=== PATIENT | male | born 1955 | race Caucasian/White ===

== ENCOUNTER 2016-08-12 16:42 | Inpatient (IN) | payer MEDICARE ==
[~2016-08-12] VITALS: Ht 172.7 cm; Wt 72.5 kg
[2016-08-12] VITALS (8 sets, daily range): BP systolic 139–222; BP diastolic 75–102; PULSE 62–87; RESP 16; TEMP 97.7; O2SAT 93–100
[2016-08-12] MEDS ORDERED: ESCI10TA PO (16:57)
[2016-08-12] MEDS ORDERED: ALPR.5 PO (16:57)
[2016-08-12] MEDS ORDERED: ATOR40TA16 PO (16:57)
[2016-08-12] MEDS ORDERED: LEVO75TA3 PO (16:57)
[2016-08-12] MEDS ORDERED: ASPI325T PO (16:57)
[2016-08-12] MEDS ORDERED: MORPHINE SULFATE 4 MG/ML INJ IV PUSH ONE (17:00)
[2016-08-12] MEDS ORDERED: SODIUM CHLORID 0.9% 500 ML INJ 500 ML IV ONE (17:00)
[2016-08-12] MEDS ORDERED: SODIUM CHLORIDE 0.9% FLUSH 10 ML FLUSH IVF PRN (17:00)
--- NOTE | 2016-08-12 17:00 | PD ---
HPI Chief Complaint: Chest Pain Time Seen by Provider: 16:48 Travel History International Travel<30 days: No Contact w/Intl Traveler<30days: No Traveled to known affect area: No History of Present Illness HPI the patient 60 years old. He arrives with left chest pain with a squeezing quality asked him severity 6/10 in severity for return in the ER. The onset occurred at rest 45 minutes ago. The patient walked on the beach today as he has been doing lately. He reports not taking aspirin for the last 6 days or so. He has a history of coronary artery disease evidently with 5 stents. Prior ER arrival he took 2 baby aspirins. Initially he felt some pain in the left scapula and left shoulder however has none now. He quit smoking 3-4 years ago. No diaphoresis. PFSH Past Medical History Cardiovascular Problems: Yes Cerebrovascular Accident: Yes Respiratory: Yes Social History Tobacco Use: Yes (quit three years ago) Allergies-Medications (Allergen,Severity, Reaction): Coded Allergies: No Known Allergies (Unverified , 08/12/16) Reported Meds & Prescriptions Reported Meds & Active Scripts Active Reported Ambien (Zolpidem Tartrate) 5 Mg Tab 5 Mg PO HS PRN Symbicort Inh (Budesonide/Formoterol Fumarate) 160-4.5 Mcg/Act Aero 1 Puff INH Q12HR Spiriva Handihaler (Tiotropium Inh) 18 Mcg Cap 18 Mcg INH DAILY 1 capsule = 18 mcg Proair Hfa 8.5 GM Inh (Albuterol Sulfate) 90 Mcg/Act Aer 2 Puff INH Q4-6H PRN 108 mcg/actuation Aspirin 325 Mg Tab 650 Mg PO ONCE Xanax (Alprazolam) 0.5 Mg Tab 0.5 Mg PO Q8H PRN Escitalopram (Escitalopram Oxalate) 10 Mg Tab 10 Mg PO DAILY Atorvastatin (Atorvastatin Calcium) 40 Mg Tab 40 Mg PO HS Levothyroxine (Levothyroxine Sodium) 75 Mcg Tab 75 Mcg PO DAILY Review of Systems Except as stated in HPI: all other systems reviewed are Neg Physical Exam Narrative GENERAL: 60-year-old male well-nourished well-developed pleasant speaking full sentences SKIN: Focused skin assessment warm/dry. HEAD: Atraumatic. Normocephalic. EYES: Pupils equal and round. No scleral icterus. No injection or drainage. ENT: No nasal bleeding or discharge. Mucous membranes pink and moist. NECK: Trachea midline. No JVD. CARDIOVASCULAR: Regular rate and rhythm. No murmur appreciated. RESPIRATORY: No accessory muscle use. Clear to auscultation. Breath sounds equal bilaterally. No tenderness along the anterior chest wall. GASTROINTESTINAL: Abdomen soft, non-tender, nondistended. Hepatic and splenic margins not palpable. MUSCULOSKELETAL: No obvious deformities. No clubbing. No cyanosis. No edema. NEUROLOGICAL: Awake and alert. No obvious cranial nerve deficits. Motor grossly within normal limits. Normal speech. PSYCHIATRIC: Appropriate mood and affect; insight and judgment normal. Data Data Last Documented VS Vital Signs Date Time Temp Pulse Resp B/P Pulse Ox O2 Delivery O2 Flow Rate FiO2 08/12/16 19:32 75 16 154/76 100 Nasal Cannula 2 08/12/16 16:50 97.7 Orders Electrocardiogram (08/12/16 16:55) Basic Metabolic Panel (Bmp) (08/12/16 16:55) Ckmb (Isoenzyme) Profile (08/12/16 16:55) Complete Blood Count With Diff (08/12/16 16:55) Magnesium (Mg) (08/12/16 16:55) Prothrombin Time / Inr (Pt) (08/12/16 16:55) Act Partial Throm Time (Ptt) (08/12/16 16:55) Troponin I (08/12/16 16:55) Chest, Single Ap (08/12/16 16:55) Ecg Monitoring (08/12/16 16:55) Bilateral Bp Monitoring (08/12/16 16:55) Iv Access Insert/Monitor (08/12/16 16:55) Oximetry (08/12/16 16:55) Oxygen Administration (08/12/16 16:55) Morphine Inj (Morphine Inj) (08/12/16 17:00) Sodium Chloride 0.9% Flush (Ns Flush) (08/12/16 17:00) Nitroglycerin Sl (Nitrostat Sl) (08/12/16 17:00) Sodium Chlorid 0.9% 500 Ml Inj (Ns 500 M (08/12/16 17:00) CKMB (08/12/16 17:00) CKMB% (08/12/16 17:00) Troponin I (08/12/16 19:45) Enoxaparin Inj (Lovenox Inj) (08/12/16 20:30) Admit Order (Ed Use Only) (08/12/16 20:52) Labs Laboratory Tests Test 08/12/16 08/12/16 17:00 19:40 White Blood Count 6.2 TH/MM3 Red Blood Count 4.99 MIL/MM3 Hemoglobin 15.6 GM/DL Hematocrit 46.0 % Mean Corpuscular Volume 92.4 FL Mean Corpuscular Hemoglobin 31.2 PG Mean Corpuscular Hemoglobin 33.8 % Concent Red Cell Distribution Width 13.5 % Platelet Count 259 TH/MM3 Mean Platelet Volume 6.8 FL Neutrophils (%) (Auto) 50.5 % Lymphocytes (%) (Auto) 30.6 % Monocytes (%) (Auto) 12.9 % Eosinophils (%) (Auto) 5.2 % Basophils (%) (Auto) 0.8 % Neutrophils # (Auto) 3.2 TH/MM3 Lymphocytes # (Auto) 1.9 TH/MM3 Monocytes # (Auto) 0.8 TH/MM3 Eosinophils # (Auto) 0.3 TH/MM3 Basophils # (Auto) 0.0 TH/MM3 CBC Comment DIFF FINAL Differential Comment Prothrombin Time 9.5 SEC Prothromb Time International 0.9 RATIO Ratio Activated Partial 26.5 SEC Thromboplast Time Sodium Level 146 MEQ/L Potassium Level 3.8 MEQ/L Chloride Level 110 MEQ/L Carbon Dioxide Level 29.5 MEQ/L Anion Gap 7 MEQ/L Blood Urea Nitrogen 15 MG/DL Creatinine 0.95 MG/DL Estimat Glomerular Filtration 81 ML/MIN Rate Random Glucose 107 MG/DL Calcium Level 8.7 MG/DL Magnesium Level 2.5 MG/DL Total Creatine Kinase 210 U/L Creatine Kinase MB 1.7 NG/ML Troponin I LESS THAN 0.02 0.08 NG/ML NG/ML MDM Medical Decision Making Medical Screen Exam Complete: Yes Emergency Medical Condition: Yes Differential Diagnosis NSTEMI, unstable angina, coronary vasospasm, PE, PTX, aortic dissection, pericarditis, myocarditis, endocarditis, PNA, esophageal disease, aneurysm, musculoskeletal etiologies, anxiety, cocaine/sympathomimetic abuse Narrative Course CBC & BMP Diagram 08/12/16 17:00 EKG: Sinus, rate 80, no STEMI, nonspecific T wave changes First troponin is < 0.02 and a second troponin is 0.08 Last 24 hours Impressions Chest X-Ray 08/12/16 1655 Signed Impressions: Service Date/Time: Friday, August 12, 2016 17:22 - CONCLUSION: 1. Minimal basilar atelectasis or scarring. No effusion. No pneumothorax. Benito Helm MD 2029: pt without pain, results d/w patient, VSS 2044: pt d/w Dr Ma for [facility] 2054: pt d/w Dr Loredo for cardiology who advises transfer to [facility] Critical Care Narrative Aggregate critical care time was 35 minutes. Time to perform other separately billable procedures was not included in the critical care time. My time did not include minutes spent treating any other patients simultaneously or on activities that did not directly contribute to the patient's treatment. The services I provided to this patient were to treat and/or prevent clinically significant deterioration that could result in: Occlusive coronary disease, myocardial infarction: I provided critical care services requiring my management, as noted below: Chart data review, documentation time, medication orders and management, vital sign assessments/reviewing monitor data, ordering and reviewing lab tests, ordering and interpreting/reviewing x-rays and diagnostic studies, care of the patient and discussion of the patient with the admitting physicians. Diagnosis Primary Impression: Chest pain Qualified Code: R07.9 - Chest pain, unspecified type Additional Impression: Elevated troponin Admitting Information Admitting Physician Requests: Jerad Daniels MD August 12, 2016 17:00
[2016-08-12] MEDS: NITROGLYCERIN 0.4 MG SL 25 TABS/BTL SL SCH ×3 (17:06→17:16)
[2016-08-12 17:11] LABS: AUTOMATED NEUTROPHIL # 3.2 TH/MM3 (1.8-7.7); BASOPHIL % 0.8 % (0.0-2.0); EOSINOPHIL # 0.3 TH/MM3 (0-0.4); EOSINOPHIL % 5.2 % (0.0-4.0); HEMO FLAGS DIFF FINAL; LYMPH % 30.6 % (9.0-44.0); LYMPHOCYTE # 1.9 TH/MM3 (1.0-4.8); MEAN CELL VOLUME 92.4 FL (80.0-100.0); MEAN CORPUSCULAR HEMOGLOBIN 31.2 PG (27.0-34.0); MEAN CORPUSCULAR HGB CONC 33.8 % (32.0-36.0); MONO % 12.9 % (0.0-8.0); NEUT % 50.5 % (16.0-70.0); PLATELET COUNT 259 TH/MM3 (150-450); RED BLOOD COUNT 4.99 MIL/MM3 (4.50-5.90); RED CELL DISTRIBUTION WIDTH 13.5 % (11.6-17.2); WHITE BLOOD COUNT 6.2 TH/MM3 (4.0-11.0)
[2016-08-12 17:19] LABS: CHLORIDE 110 MEQ/L (98-107); POTASSIUM 3.8 MEQ/L (3.5-5.1); SODIUM (NA) 146 MEQ/L (136-145)
[2016-08-12 17:22] LABS: ANION GAP 7 MEQ/L (5-15); BICARBONATE 29.5 MEQ/L (21.0-32.0); BLOOD UREA NITROGEN 15 MG/DL (7-18); MAGNESIUM 2.5 MG/DL (1.5-2.5)
[2016-08-12 17:25] LABS: GLOMERULAR FILTRATION RATE 81 ML/MIN (>89)
[2016-08-12 17:28] LABS: CREATINE KINASE 210 U/L (39-308)
[2016-08-12 17:40] LABS: CKMB 1.7 NG/ML (0.5-3.6)
[2016-08-12] MEDS ORDERED: SYMB160A INH (18:08)
[2016-08-12] MEDS ORDERED: SPIRCAP INH (18:08)
[2016-08-12] MEDS ORDERED: ALBUAER3 INH (18:08)
[2016-08-12 18:18] LABS: APTT (PATIENT) 26.5 SEC (24.3-30.1); INTERNATIONAL NORMALIZED RATIO 0.9 RATIO; PROTHROMBIN TIME - PATIENT 9.5 SEC (9.8-11.6)
--- NOTE | 2016-08-12 18:27 | RADHPO ---
EXAM DATE/TIME: 08/12/2016 17:22 [place] COMPARISON: No previous studies available for comparison. INDICATIONS : Chest pain for 1 hour MEDICAL HISTORY : Chronic obstructive pulmonary disease. SURGICAL HISTORY : Cardiac stents ENCOUNTER: Initial ACUITY: 1 day PAIN SCORE: 9/10 LOCATION: Bilateral chest FINDINGS: A single view of the chest demonstrates the lungs to be symmetrically aerated without evidence of mas s, infiltrate or effusion. There is minimal basilar atelectasis or scarring. The cardiomediastinal co ntours are unremarkable. Osseous structures are intact. CONCLUSION: 1. Minimal basilar atelectasis or scarring. No effusion. No pneumothorax. Benito Helm MD on August 12, 2016 at 18:24 Board Certified Radiologist. This report was verified electronically.
[2016-08-12] MEDS ORDERED: ENOXAPARIN SODIUM 80 MG/0.8 ML SYRINGE SQ ONE (20:30)
[2016-08-12] MEDS ORDERED: AMBI5TAB PO (20:39)
[2016-08-12] MEDS ORDERED: ALPRAZolam 0.5 MG TAB PO PRN (21:00)
[2016-08-12] MEDS ORDERED: ATORVASTATIN 40 MG TAB PO SCH (21:00)
[2016-08-12] MEDS ORDERED: ONDANSETRON HCL 4 MG/2 ML VIAL IVP PRN (21:00)
[2016-08-12] MEDS ORDERED: ZOLPIDEM TARTRATE 5 MG TAB PO PRN (21:00)
[2016-08-12] MEDS ORDERED: MORPHINE SULFATE 4 MG/ML INJ IV PRN (21:00)
[2016-08-12] MEDS ORDERED: ACETAMINOPHEN/HYDROcodone 325 MG/5 MG TAB PO PRN (21:00)
[2016-08-12] MEDS ORDERED: ACETAMINOPHEN 325 MG TAB PO PRN (21:00)
[2016-08-12] MEDS ORDERED: BISACODYL 10 MG SUPP RECTAL PRN (21:00)
[2016-08-12] MEDS ORDERED: SODIUM CHLORIDE 0.9% FLUSH 10 ML FLUSH IV FLUSH PRN (21:00)
[2016-08-12] MEDS ORDERED: ALBUTEROL SULFATE 90 MCG/ACT HFA 8 GM INHALER INH PRN (21:00)
--- NOTE | 2016-08-12 21:46 | EKG ---
Date Performed: 08/12/2016 Time Performed: 16:44:10 PTAGE: 60 years EKG: Sinus rhythm . Septal T wave changes are nonspecific Borderline ECG NO PREVIOUS TRACING DOCTOR: Magalie Loredo Interpretating Date/Time 08/12/2016 21:44:39
[2016-08-12] MEDS: BUDESONIDE-FORMOTEROL 160/4.5 MCG INHALER INH SCH (22:25)
[2016-08-12] MEDS: SODIUM CHLOR 0.9% 1000 ML INJ 1,000 ML IV SCH (22:25)
[2016-08-12] MEDS: SODIUM CHLORIDE 0.9% FLUSH 10 ML FLUSH IV FLUSH SCH (22:26)
[2016-08-13] VITALS (15 sets, daily range): BP systolic 131–152; BP diastolic 73–89; PULSE 70–86; RESP 18–20; TEMP 97–98.1; O2SAT 96–98
[2016-08-13] MEDS ORDERED: NITROGLYCERIN 0.4 MG SL 25 TABS/BTL SL PRN (03:15)
[2016-08-13] MEDS ORDERED: LORazepam 2 MG TAB PO PRN (03:30)
[2016-08-13] MEDS ORDERED: LORazepam 2 MG/ML VIAL IV PUSH PRN ×4 (03:30)
[2016-08-13] MEDS ORDERED: LORazepam 1 MG TAB PO PRN (03:30)
[2016-08-13] MEDS ORDERED: HALOPERIDOL LACTATE 5 MG/ML AMP IM PRN (03:30)
[2016-08-13] MEDS ORDERED: FLUMAZENIL 0.5 MG/5 ML VIAL IV PUSH PRN (03:30)
--- NOTE | 2016-08-13 03:32 | HHI.HP ---
[facility] Non-Staff Admission Diagnosis Chest Pain; Elevated Tn Diagnoses: (1) NSTEMI (non-ST elevated myocardial infarction) (2) Chest pain Chief Complaint: Chest pain Travel History International Travel<30 Days: No Contact w/Intl Traveler <30 Da: No Traveled to Known Affected Are: No History of Present Illness Mr. Davis is a 60 year-old male with a history of coronary artery disease status post cardiac stent placement 5 (4 in 2011 and 1 02/2015), hypertension, hyperlipidemia, hypothyroidism, and COPD who presented to the [place] emergency department on 08/13/2016 complaining of chest pain. Chest x-ray showed minimal basilar atelectasis or scarring with no effusion or pneumothorax. Troponin I elevated 0.02, 0.08, and 0.58. The patient is seen in his hospital room after he has been transferred from [place]. He tells me that he and his went for a walk on the beach yesterday. They're vacationing from [place]. He noticed that it was difficult to breathe while walking but attributed it to how windy it was outside. Then he walked 2 flights of stairs from the beach to get to his hotel room and noticed that he had slight chest pain when he got to the top. It eased up with rest and he went on to have lunch and went back to the hotel to take a nap. Left sided sharp/achy chest pain awakened him from his slumber and was accompanied by nausea. He said the chest pain he had waxed and waned from a 9/ 10 to a 2/10. The pain did not radiate and was not accompanied by shortness of breath, palpitations, or vomiting. He did get intermittently diaphoretic with it. The pain lasted for an hour and a half to 2 hours before he finally decided to come to the emergency room. He did not have his sublingual nitroglycerin from home. He took 2 full strength aspirins and initially that did help the pain but not for long. The pain became progressively worse and was finally relieved in the emergency room after receiving 3 doses of nitroglycerin and morphine. At the time of my visit, his pain level is 0 out of 10. He had been taking BC powders once a day for a prolonged time but discontinued this medication one week ago. He was concerned that BC might be bad for his stomach. He reports no recent fever, chills, upper respiratory infection, syncope, nausea, vomiting, or diarrhea. He did have an irregular bowel movement this morning that he described as being milk chocolate brown in color and loose. There was no red or tarry stool. He reports chronic shortness of breath from COPD but is not oxygen dependent. He has some vocal hoarseness that is chronic. . Review of Systems Except as stated in HPI: all other systems reviewed are Neg Past Family Social History Past Medical History Hypertension Hyperlipidemia COPD Coronary artery disease status post cardiac stent placement 5 (2012 x 4, 2014 x 1) Nephrolithiasis Hypothyroidism following radioactive iodine treatment for hyperthyroidism Possibly prediabetic . Past Surgical History Cardiac catheterization with stent placement - 2011 x 4 stents, 02/2015 x 1 stent . Reported Medications Reported Meds & Active Scripts Active Reported Symbicort Inh (Budesonide/Formoterol Fumarate) 160-4.5 Mcg/Act Aero 1 Puff INH Q12HR Spiriva Handihaler (Tiotropium Inh) 18 Mcg Cap 18 Mcg INH DAILY 1 capsule = 18 mcg Proair Hfa 8.5 GM Inh (Albuterol Sulfate) 90 Mcg/Act Aer 2 Puff INH Q4-6H PRN 108 mcg/actuation Aspirin 325 Mg Tab 650 Mg PO ONCE - off x 1 week Xanax (Alprazolam) 0.5 Mg Tab 0.5 Mg PO Q8H PRN Escitalopram (Escitalopram Oxalate) 10 Mg Tab 10 Mg PO DAILY Atorvastatin (Atorvastatin Calcium) 40 Mg Tab 40 Mg PO HS Levothyroxine (Levothyroxine Sodium) 75 Mcg Tab 75 Mcg PO DAILY . Allergies: Coded Allergies: No Known Allergies (Unverified , 08/12/16) Active Ordered Medications Current Medications Morphine Sulfate (Morphine Inj) 4 mg ONCE ONCE IV PUSH Last administered on 17:18; Start 08/12/16 at 17:00; Stop 08/12/16 at 17:01; Status DC Sodium Chloride (NS Flush) 2 ml UNSCH PRN IVF FLUSH AFTER USING IV ACCESS Last administered on 08/12/16 17:18; Start 08/12/16 at 17:00; Stop 08/12/16 at 21:16; Status DC Nitroglycerin 0.4 mg 0.4 mg Q5M SL Last administered on 08/12/16 17:16; Start 08/12/16 at 17:00; Stop 08/12/16 at 17:11; Status DC Sodium Chloride (NS 500 ml Inj) 500 ml @ 500 mls/hr ONCE ONCE IV Last administered on 08/12/16 17:18; Start 08/12/16 at 17:00; Stop 08/12/16 at 17:59; Status DC Enoxaparin Sodium (Lovenox Inj) 70 mg ONCE ONCE SQ Last administered on 20:36; Start 08/12/16 at 20:30; Stop 08/12/16 at 20:31; Status DC Aspirin (Ecotrin Ec) 81 mg DAILY PO ; Start 08/13/16 at 09:00 Enoxaparin Sodium 70 mg 70 mg Q12H SQ ; Start 08/13/16 at 09:00 Sodium Chloride (NS 1000 ml Inj) 1,000 ml @ 100 mls/hr Q10H IV Last administered on 08/12/16 22:25; Start 08/12/16 at 20:59 Sodium Chloride (NS Flush) 2 ml UNSCH PRN IV FLUSH FLUSH AFTER USING IV ACCESS ; Start 08/12/16 at 21:00 Sodium Chloride (NS Flush) 2 ml BID IV FLUSH ; Start 08/12/16 at 21:00 Ondansetron HCl (Zofran Inj) 4 mg Q6H PRN IVP NAUSEA OR VOMITING; Start at 21:00 Bisacodyl (Dulcolax Supp) 10 mg DAILY PRN RECTAL CONSTIPATION; Start 08/12/16 at 21:00 Acetaminophen (Tylenol) 650 mg Q6H PRN PO FEVER/PAIN SCALE 1 TO 2; Start at 21:00 Acetaminophen/ Hydrocodone Bitart (Rimforest 5-325 Mg) 1 tab Q4H PRN PO PAIN SCALE 3 TO 5; Start 08/12/16 at 21:00 Morphine Sulfate (Morphine Inj) 2 mg Q3H PRN IV Pain 6-10; Start 08/12/16 at 21: 00 Albuterol Sulfate (Proair Hfa Inh) 2 puff Q4HR NEB PRN INH SHORTNESS OF BREATH ; Start 08/12/16 at 21:00 Alprazolam (Xanax) 0.5 mg Q8H PRN PO ANXIETY; Start 08/12/16 at 21:00 Atorvastatin Calcium (Lipitor) 40 mg HS PO Last administered on 08/12/16 22:26 ; Start 08/12/16 at 21:00 Budesonide/ Formoterol Fumarate (Symbicort 160-4.5 Inh) 1 puff Q12HR INH Last administered on 08/12/16 22:25; Start 08/12/16 at 21:00 Escitalopram Oxalate (Lexapro) 10 mg DAILY PO ; Start 08/13/16 at 09:00 Levothyroxine Sodium (Synthroid) 75 mcg DAILY@06 PO ; Start 08/13/16 at 06:00 Tiotropium [place] (Spiriva Inh) 18 mcg DAILY INH ; Start 08/13/16 at 09:00 Zolpidem Tartrate (Ambien) 5 mg HS PRN PO INSOMNIA; Start 08/12/16 at 21:00 Nitroglycerin (Nitrostat Sl) 0.4 mg Q5M PRN SL CHEST PAIN; Start 08/13/16 at 03: 15 . Family History Mother age 64 from CVA, had HTN Brother age 70 from [place] Sister age 80 with TIA Father age 81 from Colon or Prostate [place] . Social History Tobacco: smoked 2 - 3 PPD for 38 years - quit 3 or 4 years ago Alcohol: drinks 2 - 3 beers daily and sometimes a glass of wine too Illicit Drugs: occasional recreational marijuana use - edible - rarely smokes it . Physical Exam Vital Signs Vital Signs Date Time Temp Pulse Resp B/P Pulse Ox O2 Delivery O2 Flow Rate FiO2 08/12/16 22:00 74 16 139/75 99 Nasal Cannula 2 08/12/16 19:32 75 16 154/76 100 Nasal Cannula 2 08/12/16 19:30 75 Nasal Cannula 08/12/16 18:04 62 16 176/80 98 Room Air 08/12/16 17:33 16 08/12/16 17:16 82 16 160/85 96 Nasal Cannula 2 08/12/16 17:16 16 08/12/16 17:15 94 Nasal Cannula 2 08/12/16 17:13 87 16 160/85 93 Room Air 08/12/16 17:10 86 16 186/100 94 Room Air 08/12/16 17:00 80 16 222/102 96 Room Air 194/96 08/12/16 16:57 73 16 98 Room Air 08/12/16 16:50 97.7 70 16 222/102 98 Physical Exam GENERAL: This is a well-nourished, well-developed patient, in no apparent distress. SKIN: No rashes, ecchymoses or lesions. Cool and dry. Small area of circular bruising on palmar side of left foot - quarter sized - not warm, erythematous, nor tender HEAD: Atraumatic. Normocephalic. EYES: No scleral icterus. No injection or drainage. ENT: Nose without bleeding, purulent drainage or septal hematoma. NECK: Trachea midline. No JVD. CARDIOVASCULAR: Regular rate and rhythm without murmurs, gallops, or rubs. RESPIRATORY: Clear to auscultation. Breath sounds equal bilaterally. No wheezes , rales, or rhonchi. GASTROINTESTINAL: Abdomen soft, non-tender, nondistended. No guarding. MUSCULOSKELETAL: Extremities without clubbing, cyanosis, or edema. NEUROLOGICAL: Awake and alert. Cranial nerves II through XII intact. Normal speech. . Laboratory Laboratory Tests Test 08/12/16 08/12/16 08/13/16 17:00 19:40 00:00 White Blood Count 6.2 Red Blood Count 4.99 Hemoglobin 15.6 Hematocrit 46.0 Mean Corpuscular Volume 92.4 Mean Corpuscular Hemoglobin 31.2 Mean Corpuscular Hemoglobin 33.8 Concent Red Cell Distribution Width 13.5 Platelet Count 259 Mean Platelet Volume 6.8 Neutrophils (%) (Auto) 50.5 Lymphocytes (%) (Auto) 30.6 Monocytes (%) (Auto) 12.9 Eosinophils (%) (Auto) 5.2 Basophils (%) (Auto) 0.8 Neutrophils # (Auto) 3.2 Lymphocytes # (Auto) 1.9 Monocytes # (Auto) 0.8 Eosinophils # (Auto) 0.3 Basophils # (Auto) 0.0 CBC Comment DIFF FINAL Differential Comment Prothrombin Time 9.5 Prothromb Time International 0.9 Ratio Activated Partial 26.5 Thromboplast Time Sodium Level 146 Potassium Level 3.8 Chloride Level 110 Carbon Dioxide Level 29.5 Anion Gap 7 Blood Urea Nitrogen 15 Creatinine 0.95 Estimat Glomerular Filtration 81 Rate Random Glucose 107 Calcium Level 8.7 Magnesium Level 2.5 Total Creatine Kinase 210 Creatine Kinase MB 1.7 Troponin I LESS THAN 0.02 0.08 0.58 Result Diagram: 08/12/16 1700 08/12/16 1700 Imaging Last Impressions Chest X-Ray 08/12/16 1655 Signed Impressions: Service Date/Time: Friday, August 12, 2016 17:22 - CONCLUSION: 1. Minimal basilar atelectasis or scarring. No effusion. No pneumothorax. Benito Helm MD . Assessment and Plan Problem List: (1) NSTEMI (non-ST elevated myocardial infarction) ICD Code: I21.4 Status: Acute (2) Chest pain ICD Code: R07.9 Status: Acute Assessment and Plan Mr. Davis is a 60 year-old male who presented to the [facility] emergency department on 08/13/2016 complaining of chest pain. Troponin I elevated 0.02, 0.08, and 0.58. He is being transferred to [facility] for evaluation and management. Angina/NSTEMI - Troponin I elevated 0.02, 0.08, and 0.58 - Well repeat one more troponin - Continuous cardiac telemetry to monitor for cardiac arrhythmia - Consult cardiology Dr. Loredo aware - Lovenox 70 mg subcutaneous every 12 hours as recommended by Dr. Loredo - Monitor I&Os for fluid overload - PRN analgesic medications ordered: IV Morphine, Rimforest, and Tylenol to be given depending on patients pain rating - 12-lead EKG personally reviewed and shows sinus rhythm with nonspecific septal T-wave changes - PRN sublingual Nitroglycerin and opioid analgesics including IV morphine for severe pain Daily alcohol use with concern for alcohol withdrawal - Seizure precautions - CIWA protocol - MVI and thiamine supplementation DVT prophylaxis - on therapeutic Lovenox . Discussed Condition With Patient, RN, and Dr. Ma . Collaborating MD Comments Agree w/ above assessment and plan 60yom w/ c/o chest pain, NSTEMI -Trop trending upwards, Dr. Loredo consulted by ER physician, likely cath in am. -NPO, IVF, analgesics/antiemetics as needed, NTG/Morphine prn -Daily alcohol intake-high risk for withdrawal, start CIWA, Seizure Precautions , MVT/Thiamine/Folate replacement Physician Certification 2 Midnight Certification Type: Admission for Inpatient Services Order for Inpatient Services The services are ordered in accordance with Medicare regulations or non- Medicare payer requirements, as applicable. In the case of services not specified as inpatient-only, they are appropriately provided as inpatient services in accordance with the 2-midnight benchmark. Estimated LOS (days): 3 days is the estimated time the patient will need to remain in the hospital, assuming treatment plan goals are met and no additional complications. Post-Hospital Plan: Not yet determined Problem Qualifiers (1) Chest pain: Qualified Code: R07.9 - Chest pain, unspecified type Mariama Mckeon August 13, 2016 03:32 Alexia Ma MD August 13, 2016 03:43
[2016-08-13 05:41] LABS: AUTOMATED NEUTROPHIL # 3.5 TH/MM3 (1.8-7.7); BASOPHIL # 0.1 TH/MM3 (0-0.2); BASOPHIL % 1.2 % (0.0-2.0); EOSINOPHIL # 0.3 TH/MM3 (0-0.4); EOSINOPHIL % 4.9 % (0.0-4.0); HEMATOCRIT 41.6 % (39.0-51.0); HEMO FLAGS DIFF FINAL; LYMPH % 25.7 % (9.0-44.0); LYMPHOCYTE # 1.5 TH/MM3 (1.0-4.8); MEAN CELL VOLUME 92.7 FL (80.0-100.0); MEAN CORPUSCULAR HEMOGLOBIN 31.1 PG (27.0-34.0); MEAN CORPUSCULAR HGB CONC 33.6 % (32.0-36.0); MONO % 9.3 % (0.0-8.0); NEUT % 58.9 % (16.0-70.0); PLATELET COUNT 212 TH/MM3 (150-450); RED BLOOD COUNT 4.49 MIL/MM3 (4.50-5.90); RED CELL DISTRIBUTION WIDTH 14.4 % (11.6-17.2)
[2016-08-13] MEDS ORDERED: LEVOTHYROXINE SODIUM 75 MCG TAB PO SCH (06:00)
[2016-08-13 06:03] LABS: ALKALINE PHOSPHATASE 72 U/L (45-117); ALT (GPT) 36 U/L (12-78); ANION GAP 7 MEQ/L (5-15); AST (GOT) 33 U/L (15-37); BICARBONATE 23.6 MEQ/L (21.0-32.0); BLOOD UREA NITROGEN 13 MG/DL (7-18); CHLORIDE 113 MEQ/L (98-107); GLOMERULAR FILTRATION RATE 104 ML/MIN (>89); POTASSIUM 3.7 MEQ/L (3.5-5.1); SODIUM (NA) 144 MEQ/L (136-145); TOTAL BILIRUBIN ADULT 0.5 MG/DL (0.2-1.0)
[2016-08-13] MEDS: SODIUM CHLOR 0.9% 1000 ML INJ 1,000 ML IV SCH (06:19)
[2016-08-13] MEDS: BUDESONIDE-FORMOTEROL 160/4.5 MCG INHALER INH SCH (08:47)
[2016-08-13] MEDS: SODIUM CHLORIDE 0.9% FLUSH 10 ML FLUSH IV FLUSH SCH (08:49)
[2016-08-13] MEDS ORDERED: ASPIRIN EC 81 MG TABEC PO SCH (09:00)
[2016-08-13] MEDS ORDERED: TIOTROPIUM BROMIDE 18 MCG INH INH SCH (09:00)
[2016-08-13] MEDS ORDERED: FOLIC ACID 1 MG TAB PO SCH (09:00)
[2016-08-13] MEDS ORDERED: ENOXAPARIN SODIUM 80 MG/0.8 ML SYRINGE SQ SCH (09:00)
[2016-08-13] MEDS ORDERED: ESCITALOPRAM OXALATE 10 MG TAB PO SCH (09:00)
[2016-08-13] MEDS ORDERED: THIAMINE HCL 100 MG TAB PO SCH (09:00)
[2016-08-13] MEDS ORDERED: MULTIVITAMINS/MINERALS THERAPEUTIC TAB PO SCH (09:00)
--- NOTE | 2016-08-13 10:36 | EKG ---
Date Performed: 08/13/2016 Time Performed: 01:43:48 PTAGE: 60 years EKG: Sinus rhythm Possible faulty V2 - omitted from analysis Prolonged QT interval Borderline ECG PREVIOUS TRACING : 08/12/2016 16.44 DOCTOR: Magalie Loredo Interpretating Date/Time 08/13/2016 10:34:22
[2016-08-13] MEDS ORDERED: PILL SPLITTER OTHER PRN (13:30)
[2016-08-13] MEDS ORDERED: METOPROLOL TARTRATE 25 MG TAB PO SCH (13:30)
== END 2016-08-13 14:28 | disposition left against medical advice (07) | DRG 282 ==
LOC: PHED 16:42 → PHEDA 20:53 → HCIN 08-13 00:51
PROVIDERS: ADMIT Internal Medicine; ATTEND Internal Medicine
DX: I21.4 Non-ST elevation (NSTEMI) myocardial infarction (principal); I10 Essential (primary) hypertension; J44.9 Chronic obstructive pulmonary disease, unspecified; I25.10 Atherosclerotic heart disease of native coronary artery without angina pectoris; E78.5 Hyperlipidemia, unspecified; E89.0 Postprocedural hypothyroidism; F12.90 Cannabis use, unspecified, uncomplicated; Z86.73 Personal history of transient ischemic attack (TIA), and cerebral infarction without residual deficits; Z87.891 Personal history of nicotine dependence; Z95.5 Presence of coronary angioplasty implant and graft
CPT/HCPCS: 71010; 80048; 80053; 82550; 82552; 82948; 83735; 84484; 85025; 85610; 85730; 93005; 96361; 96372; 96374; J1650; J2270; J7030; J7040